=== PATIENT | female | born 1985 | race Caucasian/White ===

== ENCOUNTER 2022-06-29 08:54 | Outpatient (CLI) | payer BC ==
[~2022-06-29] VITALS: Ht 147.3 cm; Wt 56.7 kg
== END 2022-06-29 23:59 | disposition home or self-care (01) ==
LOC: RT 08:54
PROVIDERS: ATTEND Allergy & Immunology
DX: R05.9 Cough, unspecified (principal)
CPT/HCPCS: 94010; 94727; 94729